=== PATIENT | female | born 2000 | race Caucasian/White ===

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

== ENCOUNTER 2021-04-23 20:07 | Emergency (ER) | payer OTHER ==
--- NOTE | 2021-04-23 20:32 | ERPHSYRPT ---
- History of Present Illness Time Seen by Provider: 04/23/21 20:31 Source: patient Exam Limitations: no limitations Physician History: This is a 21-year-old obese white female patient of Dr. Armijo who presents with shortness of breath, headache and body aches that started today. She has no known exposure to anyone with viral illnesses. Patient does have a history o f hypertension and anxiety. When she takes a deep breath she is also feels some chest tightness but not pain. She does smoke cigarettes daily. She has had no vomiting or diarrhea. She does have some nausea. She seems very anxious upon arrival. She denies any stressors in her life. She denies illicit drug use. Upon arrival to emergency department her room air oxygenation is 99 to 100% and her heart rate is 82 Timing/Duration: today Activities at Onset: none Severity of Dyspnea-Max: mild Severity of Dyspnea-Current: mild Possible Cause: no prior episodes Modifying Factors: Improves With: activity, coughing Associated Symptoms: anxiety, cough Allergies/Adverse Reactions: No Known Drug Allergies Allergy (Verified 04/23/21 20:20) Home Medications: No Reportable Medications [No Reported Medications] 04/23/21 [History] Hx Tetanus, Diphtheria Vaccination/Date Given: Yes Hx Influenza Vaccination/Date Given: No Hx Pneumococcal Vaccination/Date Given: No Travel Risk - International Travel Have you traveled outside of the country in past 3 weeks: No - Coronavirus Screening Are you exhibiting any of the following symptoms?: Yes Symptoms: Cough: New Onset, Shortness of Breath, Headaches/Body Aches/Fatigue Close contact with a COVID-19 positive Pt in past 14-21 Days: No - Review of Systems Constitutional: No Symptoms Eyes: No Symptoms Ears, Nose, & Throat: No Symptoms Respiratory: Cough, Dyspnea Cardiac: No Symptoms Abdominal/Gastrointestinal: Nausea, No Abdominal Pain, No Vomiting, No Diarrhea Genitourinary Symptoms: No Symptoms Musculoskeletal: No Symptoms Skin: No Symptoms Neurological: No Symptoms Psychological: No Symptoms Endocrine: No Symptoms Hematologic/Lymphatic: No Symptoms Immunological/Allergic: No Symptoms All Other Systems: Reviewed and Negative - Past Medical History Pertinent Past Medical History: No Neurological History: No Pertinent History ENT History: No Pertinent History Cardiac History: No Pertinent History Respiratory History: No Pertinent History Endocrine Medical History: No Pertinent History Musculoskeletal History: No Pertinent History GI Medical History: No Pertinent History History: No Pertinent History Psycho-Social History: No Pertinent History Female Reproductive Disorders: No Pertinent History - Past Surgical History Past Surgical History: No Neuro Surgical History: No Pertinent History Cardiac: No Pertinent History Respiratory: No Pertinent History Gastrointestinal: No Pertinent History Genitourinary: No Pertinent History Musculoskeletal: No Pertinent History - Social History Smoking Status: Current every day smoker How long have you smoked: 1 year Exposure to second hand smoke: Yes Drug Use: none Patient Lives Alone: No - Nursing Vital Signs Nursing Vital Signs: Initial Vital Signs Temperature 98.6 F 04/23/21 20:21 Pulse Rate 98 H 04/23/21 20:21 Respiratory Rate 18 04/23/21 20:21 Blood Pressure 152/94 04/23/21 20:21 O2 Sat by Pulse Oximetry 100 04/23/21 20:21 Pain Scale Pain Intensity 0 - Physical Exam General Appearance: mild distress, alert, anxiety, obese Eye Exam: PERRL/EOMI, eyes nml inspection Ears, Nose, Throat Exam: hearing grossly normal, normal ENT inspection, normal pharynx Neck Exam: normal inspection, non-tender, supple, full range of motion Respiratory Exam: normal breath sounds, lungs clear, airway intact, No chest tenderness, No respiratory distress Cardiovascular/Chest Exam: normal heart sounds, regular rate/rhythm, normal peripheral pulses Abdominal/Gastrointestinal Exam: soft, normal bowel sounds, No tenderness Rectal Exam: not done Extremity Exam: non-tender, normal range of motion, normal inspection Neurologic Exam: alert, oriented x 3, cooperative, electromedical equipment technician II-XII nml as tested, normal mood/affect, nml cerebellar function, nml station & gait, sensation nml Skin Exam: normal color, warm, dry Lymphatic Exam: No adenopathy SpO2 Interpretation: normal O2 Delivery: Room Air - Course Nursing assessment & vital signs reviewed: Yes EKG Interpreted by Me: RATE (82), Sinus Rhythm, NORMAL AXIS, NORMAL INTERVALS, NORMAL QRS, NORMAL ST-T, Other (No acute ischemic changes on today's EKG) Ordered Tests: Active Orders 24 hr Category Date Time Status Title Assistant STAT Care 04/23/21 20:38 Active EKG-ER Only STAT Care 04/23/21 20:35 Active IV Insertion STAT Care 04/23/21 20:35 Active Pulse Oximetry (ED) STAT Care 04/23/21 20:35 Active CHEST 1 VIEW (PORTABLE) Stat Exams 04/23/21 20:37 Taken BLOOD CULTURE Stat Lab 04/23/21 21:10 Received CBC W DIFF Stat Lab 04/23/21 21:00 Completed CMP Stat Lab 04/23/21 21:00 Completed D-DIMER QUANTITATIVE Stat Lab 04/23/21 21:00 Completed HCG,QUALITATIVE URINE Stat Lab 04/23/21 21:10 Completed INFLUENZA A+B ISAAC Stat Lab 04/23/21 21:10 Completed Lactic Acid Stat Lab 04/23/21 21:35 Completed [place] Screen Stat Lab 04/23/21 21:10 Completed UA W/RFX UR CULTURE Stat Lab 04/23/21 21:10 Completed Medication Summary Discontinued Medications Generic Name Dose Route Start Last Admin Trade Name Freq PRN Reason Stop Dose Admin Sodium Chloride 1,000 mls @ 999 mls/hr 04/23/21 20:35 04/23/21 21:46 Sodium Chloride 0.9% 1000 Ml IV 04/23/21 21:35 Infused .Q1H1M STA Infusion Sodium Chloride Confirm 04/23/21 20:43 Sodium Chloride 0.9% 1000 Ml Administered 04/23/21 20:44 Dose 1,000 mls @ ud .ROUTE .STK-MED ONE Ondansetron HCl 4 mg 04/23/21 20:52 04/23/21 20:55 Ondansetron Hcl 4 Mg/2 Ml Vial IV 04/23/21 20:53 4 mg STAT ONE Administration Ondansetron HCl Confirm 04/23/21 20:53 Ondansetron Hcl 4 Mg/2 Ml Vial Administered 04/23/21 20:54 Dose 4 mg .ROUTE .STK-MED ONE Lab/Rad Data: Laboratory Result Diagrams 04/23/21 21:00 04/23/21 21:00 Laboratory Results 04/23/21 04/23/21 04/23/21 Range/Units 21:35 21:10 21:10 WBC (4.0-10.5) K/mm3 RBC (4.1-5.4) M/mm3 Hgb (12.0-16.0) gm/dl Hct (35-47) % MCV (78-100) fl MCH (26-32) pg MCHC (32-36) g/dl RDW (11.5-14.0) % Plt Count (150-450) K/mm3 MPV (7.5-11.0) fl Gran % (36.0-66.0) % Eos # (Auto) (0-0.5) Absolute Lymphs (auto) (1.0-4.6) Absolute Monos (auto) (0.0-1.3) Lymphocytes % (24.0-44.0) % Monocytes % (0.0-12.0) % Eosinophils % (0.00-5.0) % Basophils % (0.0-0.4) % Absolute Granulocytes (1.4-6.9) Basophils # (0-0.4) D-Dimer (215-500) ng/mL Sodium (137-145) mmol/L Potassium (3.5-5.1) mmol/L Chloride (98-107) mmol/L Carbon Dioxide (22-30) mmol/L Anion Gap (5-15) MEQ/L BUN (7-17) mg/dL Creatinine (0.52-1.04) mg/dL Estimated GFR ML/MIN Glucose (74-106) mg/dL Lactic Acid 2.1 H (0.4-2.0) Calcium (8.4-10.2) mg/dL Total Bilirubin (0.2-1.3) mg/dL AST (14-36) U/L ALT (0-35) U/L Alkaline Phosphatase (38-126) U/L Serum Total Protein (6.3-8.2) g/dL Albumin (3.5-5.0) g/dL Urine Color (YELLOW) Urine Appearance (CLEAR) Urine pH (5-6) Ur Specific [place] (1.005-1.025) Urine Protein (Negative) Urine Ketones (NEGATIVE) Urine Blood (0-5) [place]/ul Urine Nitrite (NEGATIVE) Urine Bilirubin (NEGATIVE) Urine Urobilinogen (0-1) mg/dL Ur Leukocyte Esterase (NEGATIVE) Urine WBC (Auto) (0-5) /HPF Urine RBC (Auto) (0-2) /HPF U Epithel Cells (Auto) (FEW) /HPF Urine Bacteria (Auto) (NEGATIVE) /HPF Urine Mucus (Auto) (NEGATIVE) /HPF Urine Culture Reflexed (NO) Urine Glucose (NEGATIVE) mg/dL Urine HCG, Qual NEGATIVE (Negative) Monoscreen NEGATIVE (Negative) Influenza Type A Ag (NEGATIVE) Influenza Type B Ag (NEGATIVE) 04/23/21 04/23/21 04/23/21 Range/Units 21:10 21:10 21:00 WBC (4.0-10.5) K/mm3 RBC (4.1-5.4) M/mm3 Hgb (12.0-16.0) gm/dl Hct (35-47) % MCV (78-100) fl MCH (26-32) pg MCHC (32-36) g/dl RDW (11.5-14.0) % Plt Count (150-450) K/mm3 MPV (7.5-11.0) fl Gran % (36.0-66.0) % Eos # (Auto) (0-0.5) Absolute Lymphs (auto) (1.0-4.6) Absolute Monos (auto) (0.0-1.3) Lymphocytes % (24.0-44.0) % Monocytes % (0.0-12.0) % Eosinophils % (0.00-5.0) % Basophils % (0.0-0.4) % Absolute Granulocytes (1.4-6.9) Basophils # (0-0.4) D-Dimer 401 (215-500) ng/mL Sodium (137-145) mmol/L Potassium (3.5-5.1) mmol/L Chloride (98-107) mmol/L Carbon Dioxide (22-30) mmol/L Anion Gap (5-15) MEQ/L BUN (7-17) mg/dL Creatinine (0.52-1.04) mg/dL Estimated GFR ML/MIN Glucose (74-106) mg/dL Lactic Acid (0.4-2.0) Calcium (8.4-10.2) mg/dL Total Bilirubin (0.2-1.3) mg/dL AST (14-36) U/L ALT (0-35) U/L Alkaline Phosphatase (38-126) U/L Serum Total Protein (6.3-8.2) g/dL Albumin (3.5-5.0) g/dL Urine Color YELLOW (YELLOW) Urine Appearance SLIGHTLY CLOUDY (CLEAR) Urine pH 6.0 (5-6) Ur Specific [place] 1.024 (1.005-1.025) Urine Protein NEGATIVE (Negative) Urine Ketones NEGATIVE (NEGATIVE) Urine Blood MODERATE (0-5) [place]/ul Urine Nitrite NEGATIVE (NEGATIVE) Urine Bilirubin NEGATIVE (NEGATIVE) Urine Urobilinogen NEGATIVE (0-1) mg/dL Ur Leukocyte Esterase NEGATIVE (NEGATIVE) Urine WBC (Auto) NONE (0-5) /HPF Urine RBC (Auto) NONE (0-2) /HPF U Epithel Cells (Auto) RARE (FEW) /HPF Urine Bacteria (Auto) NONE (NEGATIVE) /HPF Urine Mucus (Auto) SLIGHT (NEGATIVE) /HPF Urine Culture Reflexed NO (NO) Urine Glucose NEGATIVE (NEGATIVE) mg/dL Urine HCG, Qual (Negative) Monoscreen (Negative) Influenza Type A Ag NEGATIVE (NEGATIVE) Influenza Type B Ag NEGATIVE (NEGATIVE) 04/23/21 04/23/21 Range/Units 21:00 21:00 WBC 8.8 (4.0-10.5) K/mm3 RBC 3.68 L (4.1-5.4) M/mm3 Hgb 11.0 L (12.0-16.0) gm/dl Hct 35.3 (35-47) % MCV 95.9 (78-100) fl MCH 29.9 (26-32) pg MCHC 31.2 L (32-36) g/dl RDW 14.6 H (11.5-14.0) % Plt Count 169 (150-450) K/mm3 MPV 11.9 H (7.5-11.0) fl Gran % 68.1 H (36.0-66.0) % Eos # (Auto) 0.15 (0-0.5) Absolute Lymphs (auto) 2.14 (1.0-4.6) Absolute Monos (auto) 0.48 (0.0-1.3) Lymphocytes % 24.5 (24.0-44.0) % Monocytes % 5.5 (0.0-12.0) % Eosinophils % 1.7 (0.00-5.0) % Basophils % 0.2 (0.0-0.4) % Absolute Granulocytes 5.96 (1.4-6.9) Basophils # 0.02 (0-0.4) D-Dimer (215-500) ng/mL Sodium 136 L (137-145) mmol/L Potassium 4.8 (3.5-5.1) mmol/L Chloride 103 (98-107) mmol/L Carbon Dioxide 22 (22-30) mmol/L Anion Gap 16.1 H (5-15) MEQ/L BUN 10 (7-17) mg/dL Creatinine 0.66 (0.52-1.04) mg/dL Estimated GFR > 60.0 ML/MIN Glucose 93 (74-106) mg/dL Lactic Acid (0.4-2.0) Calcium 9.0 (8.4-10.2) mg/dL Total Bilirubin 0.60 (0.2-1.3) mg/dL AST 48 H (14-36) U/L ALT 34 (0-35) U/L Alkaline Phosphatase 87 (38-126) U/L Serum Total Protein 7.7 (6.3-8.2) g/dL Albumin 4.3 (3.5-5.0) g/dL Urine Color (YELLOW) Urine Appearance (CLEAR) Urine pH (5-6) Ur Specific [place] (1.005-1.025) Urine Protein (Negative) Urine Ketones (NEGATIVE) Urine Blood (0-5) [place]/ul Urine Nitrite (NEGATIVE) Urine Bilirubin (NEGATIVE) Urine Urobilinogen (0-1) mg/dL Ur Leukocyte Esterase (NEGATIVE) Urine WBC (Auto) (0-5) /HPF Urine RBC (Auto) (0-2) /HPF U Epithel Cells (Auto) (FEW) /HPF Urine Bacteria (Auto) (NEGATIVE) /HPF Urine Mucus (Auto) (NEGATIVE) /HPF Urine Culture Reflexed (NO) Urine Glucose (NEGATIVE) mg/dL Urine HCG, Qual (Negative) Monoscreen (Negative) Influenza Type A Ag (NEGATIVE) Influenza Type B Ag (NEGATIVE) - Progress Progress: improved Air Movement: good Progress Note: 04/23/21 23:13 Chest x-ray shows no acute cardiopulmonary process Blood Culture(s) Obtained: Yes Antibiotics given: No Counseled pt/family regarding: lab results, diagnosis, need for follow-up, rad results - Departure Departure Disposition: Home Clinical Impression: Anxiety, Shortness of breath Condition: Stable Critical Care Time: No Referrals: ALBAN ARMIJO [Primary Care Provider] - Follow up/PCP as directed Additional Instructions: Drink plenty fluids. Take all your medication as prescribed. Quarantine yourself until the results of your COVID-19 test come back.
[2021-04-23] MEDS ORDERED: Sodium Chloride 0.9% 1000 ML 1,000 ML IV STA (20:35)
[2021-04-23] MEDS ORDERED: Sodium Chloride 0.9% 1000 ML 1,000 ML ONE (20:43)
[2021-04-23] MEDS ORDERED: Zofran 4 MG/2 ML VIAL IV ONE (20:52)
[2021-04-23] MEDS ORDERED: Zofran 4 MG/2 ML VIAL ONE (20:53)
[2021-04-23 21:27] LABS: Absolute Neutrophil Ct (ANC) 5.96 (1.4-6.9); Basophil (Absolute #) 0.02 (0-0.4); Eosinophil % 1.7 % (0.00-5.0); Eosinophil (Absolute #) 0.15 (0-0.5); Hematocrit 35.3 % (35-47); Lymphocyte (Absolute #) 2.14 (1.0-4.6); Lymphocytes % 24.5 % (24.0-44.0); Mean Cell Volume 95.9 fl (78-100); Mean Corpuscular Hemoglobin 29.9 pg (26-32); Mean Corpuscular Hgb Concent. 31.2 g/dl (32-36); Mean Platelet Volume 11.9 fl (7.5-11.0); Monocyte (Absolute #) 0.48 (0.0-1.3); Monocytes % 5.5 % (0.0-12.0); Neutrophil % 68.1 % (36.0-66.0); Platelet Count 169 K/mm3 (150-450); Red Blood Count 3.68 M/mm3 (4.1-5.4); Red Cell Distribution Width 14.6 % (11.5-14.0); White Blood Count 8.8 K/mm3 (4.0-10.5)
[2021-04-23 21:42] LABS: ALBUMIN 4.3 g/dL (3.5-5.0); ALKALINE PHOSPHATASE 87 U/L (38-126); ANION GAP 16.1 MEQ/L (5-15); BLOOD UREA NITROGEN 10 mg/dL (7-17); CHLORIDE 103 mmol/L (98-107); Carbon Dioxide 22 mmol/L (22-30); Creatinine 1 0.66 mg/dL (0.52-1.04); EST GLOMERULAR FILTRATION RATE > 60.0 ML/MIN; Glucose 93 mg/dL (74-106); Potassium 4.8 mmol/L (3.5-5.1); SGOT/AST 48 U/L (14-36); SGPT/ALT 34 U/L (0-35); SODIUM 136 mmol/L (137-145); Total Protein 7.7 g/dL (6.3-8.2)
[2021-04-23 22:02] LABS: INFLUENZA A NEGATIVE (NEGATIVE); INFLUENZA B NEGATIVE (NEGATIVE)
[2021-04-23 22:03] VITALS: O2SAT 99
[2021-04-23 22:53] LABS: Appearance SLIGHTLY CLOUDY (CLEAR); Bilirubin NEGATIVE (NEGATIVE); Blood MODERATE Ery/ul (0-5); Epithelial Cells RARE /HPF (FEW); Glucose NEGATIVE (NEGATIVE); Ketones NEGATIVE (NEGATIVE); Leukocyte Esterase NEGATIVE (NEGATIVE); Mucus SLIGHT /HPF (NEGATIVE); Nitrite NEGATIVE (NEGATIVE); Protein,Urine Dip NEGATIVE (Negative); Specific Gravity 1.024 (1.005-1.025); Urobilinogen NEGATIVE mg/dL (0-1)
[2021-04-23 23:22] VITALS: BP 132/72; PULSE 75
[2021-04-24 00:23] LABS: Slide Review 1 YES
--- NOTE | 2021-04-24 08:46 | XRAY ---
Indication: Short of breath. Comparison: None Portable chest demonstrates normal heart, lungs, and bony thorax.
== END 2021-04-23 23:32 | disposition home or self-care (01) ==
LOC: ED 20:07
DX: R06.02 Shortness of breath (principal); F41.9 Anxiety disorder, unspecified; R51.9 Headache, unspecified; M79.10 Myalgia, unspecified site; I10 Essential (primary) hypertension
CPT/HCPCS: 36000; 36415; 71045; 80053; 81001; 83605; 84703; 85025; 85379; 86308; 87040; 87400; 93005; 93041; 94760; 96374; 99284; U0003; J2405

== ENCOUNTER 2021-06-10 13:11 | Emergency (ER) | payer OTHER ==
[2021-06-10 13:26] VITALS: BP 167/79; PULSE 112; O2SAT 98
--- NOTE | 2021-06-10 13:36 | ERPHSYRPT ---
- History of Present Illness Time Seen by Provider: 06/10/21 13:30 Source: patient Exam Limitations: no limitations Patient Subjective Stated Complaint: Pt states " I was washing dishes and a plate broke and cut my thumb" Triage Nursing Assessment: Pt L thumb has a 1.5 cm laceration. bleeding controlled. tetanus shot utd Physician History: Patient suffered a 1.5 cm laceration superficial and linear to the left thumb w hile washing dishes. She does not feel that there is any loss of motion or sensation. No other injury. Tetanus is up-to-date. Timing/Duration: today Quality: painful Severity: mild Location: hands (Base of the left thumb palmar surface) Allergies/Adverse Reactions: No Known Drug Allergies Allergy (Verified 04/23/21 20:20) Home Medications: No Reportable Medications [No Reported Medications] 04/23/21 [History] Hx Tetanus, Diphtheria Vaccination/Date Given: Yes Hx Influenza Vaccination/Date Given: No Hx Pneumococcal Vaccination/Date Given: No Immunizations Up to Date: Yes Travel Risk - International Travel Have you traveled outside of the country in past 3 weeks: No - Coronavirus Screening Are you exhibiting any of the following symptoms?: No Close contact with a COVID-19 positive Pt in past 14-21 Days: No - Vaccine Status Have you recieved a Covid-19 vaccination: No - Review of Systems Constitutional: No Fever, No Chills Eyes: No Symptoms Ears, Nose, & Throat: No Symptoms Respiratory: No Cough, No Dyspnea Cardiac: No Chest Pain, No Edema, No Syncope Abdominal/Gastrointestinal: No Abdominal Pain, No Nausea, No Vomiting, No Diarrhea Genitourinary Symptoms: No Dysuria Musculoskeletal: No Back Pain, No Neck Pain Skin: No Rash Neurological: No Dizziness, No Focal Weakness, No Sensory Changes Psychological: No Symptoms Endocrine: No Symptoms All Other Systems: Reviewed and Negative - Past Medical History Pertinent Past Medical History: No Neurological History: No Pertinent History ENT History: No Pertinent History Cardiac History: No Pertinent History Respiratory History: No Pertinent History Endocrine Medical History: No Pertinent History Musculoskeletal History: No Pertinent History GI Medical History: No Pertinent History History: No Pertinent History Psycho-Social History: No Pertinent History Female Reproductive Disorders: No Pertinent History - Past Surgical History Past Surgical History: No Neuro Surgical History: No Pertinent History Cardiac: No Pertinent History Respiratory: No Pertinent History Gastrointestinal: No Pertinent History Genitourinary: No Pertinent History Musculoskeletal: No Pertinent History - Social History Smoking Status: Current every day smoker How long have you smoked: 1 year Exposure to second hand smoke: Yes Drug Use: none Patient Lives Alone: No - Female History Hx Now: No - Nursing Vital Signs Nursing Vital Signs: Initial Vital Signs Temperature 98.8 F 06/10/21 13:25 Pulse Rate 112 H 06/10/21 13:25 Respiratory Rate 18 06/10/21 13:25 Blood Pressure 167/79 06/10/21 13:25 O2 Sat by Pulse Oximetry 98 06/10/21 13:25 Pain Scale Pain Intensity 3 - Physical Exam General Appearance: no apparent distress Eye Exam: PERRL/EOMI, eyes nml inspection Ears, Nose, Throat Exam: normal ENT inspection Neck Exam: normal inspection, non-tender, supple Respiratory Exam: airway intact, No respiratory distress Back Exam: normal inspection, normal range of motion Extremity Exam: normal inspection, normal range of motion, lacerations, No parasthesia (1.5 cm laceration base of the left thumb palmar surface.) Neurologic Exam: oriented x 3, cooperative Lymphatic Exam: other (Laceration left thumb) SpO2 Interpretation: normal SpO2: 98 O2 Delivery: Room Air Procedures - Laceration/Wound Repair Left Finger Wound Location: Left, hand (Left thumb 1.5 cm) Wound Length (cm): 1.5 Wound's Depth, Shape: superficial, linear Wound Explored: clean Irrigated: Yes Hibiclens Prep: Yes Anesthesia: 1% Lidocaine Volume Anesthetic (ccs): 2 Wound Debrided: minimal Wound Repaired With: sutures Suture Size/Type: 5-0, ethilon Number of Sutures: 3 Layer Closure?: No Sterile Dressing Applied?: Yes Splint Applied?: No Sling Applied?: No - Course Nursing assessment & vital signs reviewed: Yes - Progress Progress: improved - Departure Departure Disposition: Home Clinical Impression: Laceration of left thumb Condition: Stable Critical Care Time: No Referrals: ALBAN HERNANDEZ [Primary Care Provider] - Follow up/PCP as directed Instructions: Laceration Repair With Stitches (DC)
== END 2021-06-10 13:46 | disposition home or self-care (01) ==
LOC: ED 13:11
DX: S61.012A Laceration without foreign body of left thumb without damage to nail, initial encounter (principal); W26.8XXA Contact with other sharp object(s), not elsewhere classified, initial encounter; Y93.G1 Activity, food preparation and clean up; Y92.000 Kitchen of unspecified non-institutional (private) residence as the place of occurrence of the external cause; Z72.0 Tobacco use
CPT/HCPCS: 12001; 99283

== ENCOUNTER 2023-02-17 15:34 | Emergency (ER) | payer OTHER ==
[2023-02-17] MEDS ORDERED: Sodium Chloride 0.9% 1000 ML 1,000 ML IV STA ×2 (15:55→16:36)
[2023-02-17] MEDS ORDERED: Zofran 4 MG/2 ML VIAL IV ONE (15:55)
[2023-02-17 15:56] VITALS: BP 126/85; PULSE 89; RESP 22; TEMP 98.1; O2SAT 98
[2023-02-17 16:17] LABS: BASOPHIL % 0.5 % (0.0-0.4); Basophil (Absolute #) 0.03 x10^3/uL (0-0.4); Eosinophil % 0.5 % (0.00-5.0); Eosinophil (Absolute #) 0.03 x10^3/uL (0-0.5); Hematocrit 36.8 % (35-47); Hemoglobin 11.4 g/dL (12.0-16.0); IMMATURE GRAN # 0.02 x10^3u/L (0.00-0.03); IMMATURE GRAN % 0.3 % (0.00-0.4); Lymphocyte (Absolute #) 1.89 x10^3/uL (1.0-4.6); Mean Cell Volume 86.4 fL (78-100); Mean Corpuscular Hemoglobin 26.8 pg (26-32); Mean Platelet Volume 9.8 fL (7.5-11.0); Monocyte (Absolute #) 0.44 x10^3/uL (0.0-1.3); Monocytes % 6.8 % (0.0-12.0); Neutrophil % 62.9 % (36.0-66.0); Platelet Count 304 x10^3/uL (150-450); Red Blood Count 4.26 x10^6/uL (4.1-5.4); White Blood Count 6.5 x10^3/uL (4.0-10.5)
[2023-02-17] MEDS ORDERED: Sodium Chloride 0.9% 1000 ML 0 ML ONE (16:20)
[2023-02-17] MEDS ORDERED: Zofran 4 MG/2 ML VIAL ONE (16:20)
[2023-02-17 16:28] LABS: Amphetamine,Urine NEGATIVE (NEGATIVE); Barbiturate,Urine NEGATIVE (NEGATIVE); Benzodiazepine,Urine NEGATIVE (NEGATIVE); Cocaine,Urine NEGATIVE (NEGATIVE); Methadone,Urine NEGATIVE (NEGATIVE); Opiate,Urine NEGATIVE (NEGATIVE); PCP,Urine NEGATIVE (NEGATIVE); THC,Urine NEGATIVE (NEGATIVE)
[2023-02-17 16:32] LABS: ALBUMIN 4.3 g/dL (3.5-5.0); ANION GAP 20.4 MEQ/L (5-15); BILIRUBIN,TOTAL 0.5 mg/dL (0.2-1.3); Creatinine 1 0.66 mg/dL (0.52-1.04); EST GLOMERULAR FILTRATION RATE 126.3 ML/MIN; Potassium 4.2 mmol/L (3.5-5.1); Total Protein 7.8 g/dL (6.3-8.2)
[2023-02-17 16:33] LABS: Appearance Cloudy (Clear); Bacteria Few /HPF (None Seen); Bilirubin Negative (Negative); Blood Negative (Negative); Epithelial Cells Many /HPF (None Seen); Glucose, Urine Negative (Negative); Hyaline Casts NONE SEEN /LPF (0-2); Ketones Trace (Negative); Leukocyte Esterase Negative (Negative); Nitrite Negative (Negative); Ph 5.5 (4.6-8.0); Protein,Urine Dip Trace (Negative); RBC 0-2 /HPF (0-5); Specific Gravity 1.025 (1.005-1.030); Urobilinogen 0.2 mg/dL (0.2); WBC 0-2 /HPF (0-5)
[2023-02-17 16:34] LABS: ADD URINE CULTURE? NO (NO)
[2023-02-17 16:37] LABS: HCG SERUM TEST NEGATIVE (NEGATIVE)
[2023-02-17 16:47] LABS: INFLUENZA A NEGATIVE (NEGATIVE); INFLUENZA B NEGATIVE (NEGATIVE); RESPIRATORY SYNCTIAL VIRUS NEGATIVE (NEGATIVE); SARS-CoV-2 Xpert Express NEGATIVE (NEGATIVE)
[2023-02-17] MEDS ORDERED: Reglan 10 MG/2 ML IV ONE (16:53)
[2023-02-17] MEDS ORDERED: Reglan 10 MG/2 ML ONE (17:00)
--- NOTE | 2023-02-17 17:38 | XRAY ---
CLINICAL HISTORY:n,v COMPARISON:CT dated 11/12/2013 reviewed. TECHNIQUE:CT scan of the abdomen and pelvis was performed without intravenous contrast. Coronal and sagittal reconstructive images were also obtained. FINDINGS: Basal thoracic cuts: clear lung bases. Liver and biliary tree: Enlarged liver (liver span 23 cm) with diffuse hypoattenuation. No liver lesion is seen. GB is distended. No stones or masses inside. Spleen: Unremarkable. Adrenal glands: Unremarkable. Pancreas: Unremarkable. Kidneys and ureters: Unremarkable. No renal stone, cysts or hydronephrosis is detected. Stomach and bowel: Caecal diverticula are seen. There is mild bowel wall thickening with hypoattenuation at the transverse and ascending colon, which could be secondary to hypodistention versus inflammatory or infectious in origin. Retroperitoneum: Unremarkable. Lymph nodes: No evidence of lymphadenopathy. Skeletal system: No suspicious bony lesion detected. Bladder: No definite focal lesion detected. The uterus and both adnexa are unremarkable. IMPRESSION: Enlarged liver (liver span 23 cm) with diffuse hypoattenuation. Findings suggesting hepatic steatosis. Caecal diverticula are seen with no evident diverticulitis. Mild bowel wall thickening with hypoattenuation at the transverse and ascending colon, which could be secondary to hypodistention versus inflammatory or infectious in origin. Clinical correlation and follow-up are suggested. Electronically Signed by: Rakesh Yang MD. (02/17/2023 16:37:15 STUDENT ADVISOR)
--- NOTE | 2023-02-17 18:04 | ERPHSYRPT ---
- History of Present Illness Time Seen by Provider: 02/17/23 16:00 Historian: patient, family Exam Limitations: no limitations Patient Subjective Stated Complaint: pt co n/v started today, no cough, no fever. Triage Nursing Assessment: pt alert, resp easy, walked in, skin w.d.p, chest clear, abd soft, urine dark yellow Physician History: Patient is a 22-year-old white female who presents with a chief complaint of vomiting and some shortness of work. She was at work when this started she became lightheaded she vomited initially there was some blood but later she was not vomiting any significant blood. She does say she feels lightheaded and felt like she was going to pass out. This started approximately 3 hours prior to arrival.Patient has minimal complaint of pain. Timing/Duration: today Allergies/Adverse Reactions: No Known Drug Allergies Allergy (Verified 02/17/23 15:56) Hx Tetanus, Diphtheria Vaccination/Date Given: Yes Hx Influenza Vaccination/Date Given: No Hx Pneumococcal Vaccination/Date Given: No Immunizations Up to Date: Yes Travel Risk - International Travel Have you traveled outside of the country in past 3 weeks: No - Coronavirus Screening Are you exhibiting any of the following symptoms?: Yes Symptoms: Vomiting/Diarrhea Close contact with a COVID-19 positive Pt in past 14-21 Days: No - Vaccine Status Have you recieved a Covid-19 vaccination: No - Review of Systems Constitutional: No Fever, No Chills Eyes: No Symptoms Ears, Nose, & Throat: No Symptoms Respiratory: No Cough, No Dyspnea Cardiac: No Chest Pain, No Edema, No Syncope Abdominal/Gastrointestinal: Abdominal Pain, Hematemesis, No Nausea, No Vomiting, No Diarrhea Genitourinary Symptoms: No Dysuria Musculoskeletal: No Back Pain, No Neck Pain Skin: No Rash Neurological: No Dizziness, No Focal Weakness, No Sensory Changes Psychological: No Symptoms Endocrine: No Symptoms All Other Systems: Reviewed and Negative - Past Medical History Pertinent Past Medical History: No Neurological History: No Pertinent History ENT History: No Pertinent History Cardiac History: No Pertinent History Respiratory History: No Pertinent History Endocrine Medical History: No Pertinent History Musculoskeletal History: No Pertinent History GI Medical History: No Pertinent History History: No Pertinent History Psycho-Social History: No Pertinent History Female Reproductive Disorders: No Pertinent History - Past Surgical History Past Surgical History: No Neuro Surgical History: No Pertinent History Cardiac: No Pertinent History Respiratory: No Pertinent History Gastrointestinal: No Pertinent History Genitourinary: No Pertinent History Musculoskeletal: No Pertinent History - Social History Smoking Status: Never smoker How long have you smoked: 1 year Exposure to second hand smoke: No Drug Use: none Patient Lives Alone: No - Female History Hx Last Menstrual Period: last week Hx Now: No - Nursing Vital Signs Nursing Vital Signs: Initial Vital Signs Temperature 98.1 F 02/17/23 15:55 Pulse Rate 89 02/17/23 15:55 Respiratory Rate 22 02/17/23 15:55 Blood Pressure 126/85 02/17/23 15:55 O2 Sat by Pulse Oximetry 98 02/17/23 15:55 Pain Scale Pain Intensity 0 - Physical Exam General Appearance: mild distress, alert Eye Exam: PERRL/EOMI, eyes nml inspection Ears, Nose, Throat Exam: normal ENT inspection, pharynx normal, moist mucous membranes Neck Exam: normal inspection, non-tender, supple, full range of motion Respiratory Exam: normal breath sounds, lungs clear, No respiratory distress Cardiovascular Exam: regular rate/rhythm, normal heart sounds Gastrointestinal/Abdomen Exam: soft, No tenderness, No mass Pelvic Exam: not done Rectal Exam: deferred Back Exam: normal inspection, normal range of motion, No CVA tenderness, No vertebral tenderness Extremity Exam: normal inspection, normal range of motion, pelvis stable Neurologic Exam: alert, oriented x 3, cooperative, normal mood/affect, nml cerebellar function, sensation nml, No motor deficits Skin Exam: normal color, warm, dry SpO2: 98 - Course Nursing assessment & vital signs reviewed: Yes - CT Exams Abdomen/Pelvis CT Interpretation: Tele-radiologist Report Ordered Tests: Active Orders 24 hr Category Date Time Status IV Insertion STAT Care 02/17/23 15:55 Active ABDOMEN AND PELVIS W/0 CONTRAS [CT] Stat Exams 02/17/23 16:49 Completed CBC W DIFF Stat Lab 02/17/23 16:10 Completed CMP Stat Lab 02/17/23 16:10 Completed HCG QUALITATIVE, SERUM Stat Lab 02/17/23 16:10 Completed LIPASE Stat Lab 02/17/23 16:10 Completed Lactic Acid Stat Lab 02/17/23 16:20 Completed UA W/RFX UR CULTURE Stat Lab 02/17/23 15:30 Completed Urine Triage Profile Stat Lab 02/17/23 15:30 Completed Medication Summary Discontinued Medications Generic Name Dose Route Start Last Admin Trade Name Rylee PRN Reason Stop Dose Admin Sodium Chloride 1,000 mls @ 999 mls/hr 02/17/23 15:55 02/17/23 16:23 Sodium Chloride 0.9% 1000 Ml IV 02/17/23 16:55 999 mls/hr .Q1H1M STA Administration Sodium Chloride Confirm 02/17/23 16:20 Sodium Chloride 0.9% 1000 Ml Administered 02/17/23 16:21 Dose 1,000 mls @ ud .ROUTE .STK-MED ONE Sodium Chloride 1,000 mls @ 999 mls/hr 02/17/23 16:36 Sodium Chloride 0.9% 1000 Ml IV 02/17/23 17:36 .Q1H1M STA Metoclopramide HCl 10 mg 02/17/23 16:53 02/17/23 17:02 Metoclopramide Hcl 10 Mg/2 Ml Vial IV 02/17/23 16:54 10 mg STAT ONE Administration Metoclopramide HCl Confirm 02/17/23 17:00 Metoclopramide Hcl 10 Mg/2 Ml Vial Administered 02/17/23 17:01 Dose 10 mg .ROUTE .STK-MED ONE Ondansetron HCl 4 mg 02/17/23 15:55 02/17/23 16:24 Ondansetron Hcl 4 Mg/2 Ml Vial IV 02/17/23 15:56 4 mg STAT ONE Administration Ondansetron HCl Confirm 02/17/23 16:20 Ondansetron Hcl 4 Mg/2 Ml Vial Administered 02/17/23 16:21 Dose 4 mg .ROUTE .STK-MED ONE Lab/Rad Data: Laboratory Result Diagrams 02/17/23 16:10 02/17/23 16:10 Laboratory Results 02/17/23 02/17/23 02/17/23 Range/Units 16:20 16:10 16:10 WBC (4.0-10.5) x10^3/uL RBC (4.1-5.4) x10^6/uL Hgb (12.0-16.0) g/dL Hct (35-47) % MCV (78-100) fL MCH (26-32) pg MCHC (32-36) g/dL RDW (11.5-14.0) % Plt Count (150-450) x10^3/uL MPV (7.5-11.0) fL Gran % (36.0-66.0) % Immature Gran % (Auto) (0.00-0.4) % Nucleat RBC Rel Count (0.00-0.1) % Eos # (Auto) (0-0.5) x10^3/uL Immature Gran # (Auto) (0.00-0.03) x10^3u/L Absolute Lymphs (auto) (1.0-4.6) x10^3/uL Absolute Monos (auto) (0.0-1.3) x10^3/uL Absolute Nucleated RBC (0.00-0.01) x10^3u/L Lymphocytes % (24.0-44.0) % Monocytes % (0.0-12.0) % Eosinophils % (0.00-5.0) % Basophils % (0.0-0.4) % Absolute Granulocytes (1.4-6.9) x10^3/uL Basophils # (0-0.4) x10^3/uL Sodium 140 (137-145) mmol/L Potassium 4.2 (3.5-5.1) mmol/L Chloride 101 (98-107) mmol/L Carbon Dioxide 23 (22-30) mmol/L Anion Gap 20.4 H (5-15) MEQ/L BUN 7 (7-17) mg/dL Creatinine 0.66 (0.52-1.04) mg/dL Estimated GFR 126.3 ML/MIN Glucose 97 (74-106) mg/dL Lactic Acid 3.3 H (0.4-2.0) Calcium 9.0 (8.4-10.2) mg/dL Total Bilirubin 0.50 (0.2-1.3) mg/dL AST 146 H (14-36) U/L ALT 124 H (0-35) U/L Alkaline Phosphatase 117 (38-126) U/L Serum Total Protein 7.8 (6.3-8.2) g/dL Albumin 4.3 (3.5-5.0) g/dL Lipase 46 (23-300) U/L Serum HCG, Qual NEGATIVE (NEGATIVE) Urine Color (Yellow) Urine Appearance (Clear) Urine pH (4.6-8.0) Ur Specific [place] (1.005-1.030) Urine Protein (Negative) Urine Glucose (UA) (Negative) mg/dL Urine Ketones (Negative) Urine Blood (Negative) Urine Nitrite (Negative) Urine Bilirubin (Negative) Urine Urobilinogen (0.2) mg/dL Ur Leukocyte Esterase (Negative) U Hyaline Cast (Auto) (0-2) /LPF Urine Microscopic RBC (0-5) /HPF Urine Microscopic WBC (0-5) /HPF Ur Epithelial Cells (None Seen) /HPF Urine Bacteria (None Seen) /HPF Urine Yeast (Budding) (None Seen) /HPF Urine Culture Reflexed (NO) Urine Opiates Level (NEGATIVE) Ur Methadone (NEGATIVE) Urine Barbiturates (NEGATIVE) Ur Phencyclidine (PCP) (NEGATIVE) Urine Amphetamine (NEGATIVE) U Benzodiazepine Level (NEGATIVE) Urine Cocaine (NEGATIVE) Urine Marijuana (THC) (NEGATIVE) Influenza Type A Ag (NEGATIVE) Influenza Type B Ag (NEGATIVE) RSV (PCR) (NEGATIVE) SARS-CoV-2 (PCR) (NEGATIVE) 02/17/23 02/17/23 02/17/23 Range/Units 16:10 16:04 15:30 WBC 6.5 (4.0-10.5) x10^3/uL RBC 4.26 (4.1-5.4) x10^6/uL Hgb 11.4 L (12.0-16.0) g/dL Hct 36.8 (35-47) % MCV 86.4 (78-100) fL MCH 26.8 (26-32) pg MCHC 31.0 L (32-36) g/dL RDW 18.0 H (11.5-14.0) % Plt Count 304 (150-450) x10^3/uL MPV 9.8 (7.5-11.0) fL Gran % 62.9 (36.0-66.0) % Immature Gran % (Auto) 0.3 (0.00-0.4) % Nucleat RBC Rel Count 0.0 (0.00-0.1) % Eos # (Auto) 0.03 (0-0.5) x10^3/uL Immature Gran # (Auto) 0.02 (0.00-0.03) x10^3u/L Absolute Lymphs (auto) 1.89 (1.0-4.6) x10^3/uL Absolute Monos (auto) 0.44 (0.0-1.3) x10^3/uL Absolute Nucleated RBC 0.00 (0.00-0.01) x10^3u/L Lymphocytes % 29.0 (24.0-44.0) % Monocytes % 6.8 (0.0-12.0) % Eosinophils % 0.5 (0.00-5.0) % Basophils % 0.5 (0.0-0.4) % Absolute Granulocytes 4.10 (1.4-6.9) x10^3/uL Basophils # 0.03 (0-0.4) x10^3/uL Sodium (137-145) mmol/L Potassium (3.5-5.1) mmol/L Chloride (98-107) mmol/L Carbon Dioxide (22-30) mmol/L Anion Gap (5-15) MEQ/L BUN (7-17) mg/dL Creatinine (0.52-1.04) mg/dL Estimated GFR ML/MIN Glucose (74-106) mg/dL Lactic Acid (0.4-2.0) Calcium (8.4-10.2) mg/dL Total Bilirubin (0.2-1.3) mg/dL AST (14-36) U/L ALT (0-35) U/L Alkaline Phosphatase (38-126) U/L Serum Total Protein (6.3-8.2) g/dL Albumin (3.5-5.0) g/dL Lipase (23-300) U/L Serum HCG, Qual (NEGATIVE) Urine Color (Yellow) Urine Appearance (Clear) Urine pH (4.6-8.0) Ur Specific [place] (1.005-1.030) Urine Protein (Negative) Urine Glucose (UA) (Negative) mg/dL Urine Ketones (Negative) Urine Blood (Negative) Urine Nitrite (Negative) Urine Bilirubin (Negative) Urine Urobilinogen (0.2) mg/dL Ur Leukocyte Esterase (Negative) U Hyaline Cast (Auto) (0-2) /LPF Urine Microscopic RBC (0-5) /HPF Urine Microscopic WBC (0-5) /HPF Ur Epithelial Cells (None Seen) /HPF Urine Bacteria (None Seen) /HPF Urine Yeast (Budding) (None Seen) /HPF Urine Culture Reflexed (NO) Urine Opiates Level NEGATIVE (NEGATIVE) Ur Methadone NEGATIVE (NEGATIVE) Urine Barbiturates NEGATIVE (NEGATIVE) Ur Phencyclidine (PCP) NEGATIVE (NEGATIVE) Urine Amphetamine NEGATIVE (NEGATIVE) U Benzodiazepine Level NEGATIVE (NEGATIVE) Urine Cocaine NEGATIVE (NEGATIVE) Urine Marijuana (THC) NEGATIVE (NEGATIVE) Influenza Type A Ag NEGATIVE (NEGATIVE) Influenza Type B Ag NEGATIVE (NEGATIVE) RSV (PCR) NEGATIVE (NEGATIVE) SARS-CoV-2 (PCR) NEGATIVE (NEGATIVE) 02/17/23 Range/Units 15:30 WBC (4.0-10.5) x10^3/uL RBC (4.1-5.4) x10^6/uL Hgb (12.0-16.0) g/dL Hct (35-47) % MCV (78-100) fL MCH (26-32) pg MCHC (32-36) g/dL RDW (11.5-14.0) % Plt Count (150-450) x10^3/uL MPV (7.5-11.0) fL Gran % (36.0-66.0) % Immature Gran % (Auto) (0.00-0.4) % Nucleat RBC Rel Count (0.00-0.1) % Eos # (Auto) (0-0.5) x10^3/uL Immature Gran # (Auto) (0.00-0.03) x10^3u/L Absolute Lymphs (auto) (1.0-4.6) x10^3/uL Absolute Monos (auto) (0.0-1.3) x10^3/uL Absolute Nucleated RBC (0.00-0.01) x10^3u/L Lymphocytes % (24.0-44.0) % Monocytes % (0.0-12.0) % Eosinophils % (0.00-5.0) % Basophils % (0.0-0.4) % Absolute Granulocytes (1.4-6.9) x10^3/uL Basophils # (0-0.4) x10^3/uL Sodium (137-145) mmol/L Potassium (3.5-5.1) mmol/L Chloride (98-107) mmol/L Carbon Dioxide (22-30) mmol/L Anion Gap (5-15) MEQ/L BUN (7-17) mg/dL Creatinine (0.52-1.04) mg/dL Estimated GFR ML/MIN Glucose (74-106) mg/dL Lactic Acid (0.4-2.0) Calcium (8.4-10.2) mg/dL Total Bilirubin (0.2-1.3) mg/dL AST (14-36) U/L ALT (0-35) U/L Alkaline Phosphatase (38-126) U/L Serum Total Protein (6.3-8.2) g/dL Albumin (3.5-5.0) g/dL Lipase (23-300) U/L Serum HCG, Qual (NEGATIVE) Urine Color Dark Yellow A (Yellow) Urine Appearance Cloudy A (Clear) Urine pH 5.5 (4.6-8.0) Ur Specific [place] 1.025 (1.005-1.030) Urine Protein Trace A (Negative) Urine Glucose (UA) Negative (Negative) mg/dL Urine Ketones Trace A (Negative) Urine Blood Negative (Negative) Urine Nitrite Negative (Negative) Urine Bilirubin Negative (Negative) Urine Urobilinogen 0.2 (0.2) mg/dL Ur Leukocyte Esterase Negative (Negative) U Hyaline Cast (Auto) NONE SEEN (0-2) /LPF Urine Microscopic RBC 0-2 (0-5) /HPF Urine Microscopic WBC 0-2 (0-5) /HPF Ur Epithelial Cells Many A (None Seen) /HPF Urine Bacteria Few A (None Seen) /HPF Urine Yeast (Budding) (None Seen) /HPF Urine Culture Reflexed NO (NO) Urine Opiates Level (NEGATIVE) Ur Methadone (NEGATIVE) Urine Barbiturates (NEGATIVE) Ur Phencyclidine (PCP) (NEGATIVE) Urine Amphetamine (NEGATIVE) U Benzodiazepine Level (NEGATIVE) Urine Cocaine (NEGATIVE) Urine Marijuana (THC) (NEGATIVE) Influenza Type A Ag (NEGATIVE) Influenza Type B Ag (NEGATIVE) RSV (PCR) (NEGATIVE) SARS-CoV-2 (PCR) (NEGATIVE) - Progress Progress: improved Medical Desision Making - Diagnostic Testing Diagnostic test were ordered, analyzed, and reviewed by me: Yes Radiological Interpretation: Reviewed by me, Teleradiologist Report - Risk of complications Low Risk: Low risk of morbidity from additional dx testing or treatment - Departure Departure Disposition: Home Clinical Impression: Colitis Condition: Stable Critical Care Time: No Referrals: ALBAN HERNANDEZ [Primary Care Provider] - Follow up/PCP as directed Instructions: Ulcerative Colitis (DC) Prescriptions: Metronidazole 500 mg [Flagyl 500 MG] 500 mg PO TID #21 tablet Metoclopramide HCl 10 mg [Reglan 10 MG] 10 mg PO Q6H 10 Days #40 tablet
[2023-02-17] MEDS ORDERED: Sodium Chloride 0.9% 1000 ML 1,000 ML ONE (18:13)
== END 2023-02-17 18:19 | disposition home or self-care (01) ==
LOC: ED 15:34
DX: K52.9 Noninfective gastroenteritis and colitis, unspecified (principal); R11.2 Nausea with vomiting, unspecified; R42 Dizziness and giddiness; Z28.310 Unvaccinated for COVID-19
CPT/HCPCS: 0241U; 36000; 36415; 74176; 80053; 80307; 81001; 83605; 83690; 84703; 85025; 96360; 96374; 96375; 99284; J2405

== ENCOUNTER 2023-10-01 03:57 | Emergency (ER) | payer SELFPAY ==
[2023-10-01 04:23] VITALS: TEMP 97.7
--- NOTE | 2023-10-01 04:52 | ERPHSYRPT ---
- History of Present Illness Source: patient, other (Mother) Exam Limitations: other (Poor historian) Patient Subjective Stated Complaint: C/O right foot pain X 2 weeks. Denies injury. Triage Nursing Assessment: Patient ambulated back to ER without difficulties. She is alert and oriented. Right foot/ankle is slightly swollen. Normal skin tone. ROM WNL. Pedal pulse present. Physician History: 23-year-old female who complains of left ankle edema and mild pain x 2 weeks. Pain is very minimal and mildly increased with weightbearing. Patient denies any injury. Denies any chest pain or shortness of breath. Method of Injury: unknown (Denies injury) Occurred: other (Swelling x 2 weeks) Severity of Pain-Max: mild Severity of Pain-Current: mild Lower Extremities Pain: ankle: right Modifying Factors: Improves With: movement Associated Symptoms: No unable to bear weight Allergies/Adverse Reactions: No Known Drug Allergies Allergy (Verified 10/01/23 04:09) Home Medications: No Reportable Medications [No Reported Medications] 10/01/23 [History] Hx Tetanus, Diphtheria Vaccination/Date Given: Yes Hx Influenza Vaccination/Date Given: No Hx Pneumococcal Vaccination/Date Given: No Travel Risk - International Travel Have you traveled outside of the country in past 3 weeks: No - Emerging Infectious Disease Are you exhibiting symptoms associated with any current EIDs: No - Review of Systems Constitutional: No Symptoms Eyes: No Symptoms Ears, Nose, & Throat: No Symptoms Respiratory: No Symptoms Cardiac: No Symptoms Abdominal/Gastrointestinal: No Symptoms Genitourinary Symptoms: No Symptoms Skin: No Symptoms Neurological: No Symptoms Psychological: No Symptoms Endocrine: No Symptoms Hematologic/Lymphatic: No Symptoms Immunological/Allergic: No Symptoms - Past Medical History Pertinent Past Medical History: No Neurological History: No Pertinent History ENT History: No Pertinent History Cardiac History: No Pertinent History Respiratory History: No Pertinent History Endocrine Medical History: No Pertinent History Musculoskeletal History: No Pertinent History GI Medical History: No Pertinent History History: No Pertinent History Psycho-Social History: No Pertinent History Female Reproductive Disorders: No Pertinent History - Past Surgical History Past Surgical History: No Neuro Surgical History: No Pertinent History Cardiac: No Pertinent History Respiratory: No Pertinent History Gastrointestinal: No Pertinent History Genitourinary: No Pertinent History Musculoskeletal: No Pertinent History - Female History Hx Last Menstrual Period: Just ended Hx Now: No - Social History Smoking Status: Never smoker How long have you smoked: 1 year Exposure to second hand smoke: No Drug Use: none Patient Lives Alone: No - Social Determinants of Health Will the patient participate in the screening: Declined to provide - Nursing Vital Signs Nursing Vital Signs: Initial Vital Signs Temperature 97.7 F 10/01/23 03:57 Pulse Rate 120 H 10/01/23 03:57 Respiratory Rate 18 10/01/23 03:57 Blood Pressure 143/93 10/01/23 03:57 O2 Sat by Pulse Oximetry 96 10/01/23 03:57 Pain Scale Pain Intensity 1 Tachycardic, hypertensive - Physical Exam General Appearance: no apparent distress Eyes, Ears, Nose, Throat Exam: normal ENT inspection, TMs normal, pharynx normal Neck Exam: normal inspection, non-tender, No Brudzinski Cardiovascular/Respiratory Exam: normal breath sounds, tachycardia (Mildly tachycardic) Gastrointestinal/Abdominal Exam: non-tender, soft Back Exam: normal inspection, normal range of motion Hips Exam: bilateral: non-tender, normal inspection, normal range of motion, no evidence of injury Legs Exam: bilateral leg: non-tender, normal inspection, normal range of motion, no evidence of injury Knees Exam: bilateral knee: non-tender, normal inspection, normal range of motion, no evidence of injury Ankle Exam: bilateral ankle: swelling (Mild ankle edema bilaterally) Foot Exam: bilateral foot: swelling (Mild foot edema bilaterally, good pedal pulses bilaterally, good distal capillary turn and sensation bilaterally) Neuro/Tendon Exam: normal sensation, normal motor functions, responds to pain, no evidence tendon injury Mental Status Exam: alert, oriented x 3 Skin Exam: normal color, warm, dry SpO2 Interpretation: normal SpO2: 96 O2 Delivery: Room Air - Course Nursing assessment & vital signs reviewed: Yes - Radiology Exams Ankle X-ray Interpretation: Interpreted by me (Right ankle negative for acute fracture per ER reading) Ordered Tests: Active Orders 24 hr Category Date Time Status Robel Bandage Application -[facility] STAT Care 10/01/23 04:57 Active ANKLE (3 VIEWS) Stat Exams 10/01/23 04:19 Taken - Progress Progress: improved Progress Note: 10/01/23 05:01 Nursing note and vital signs reviewed. No food or housing insecurity noted. Right ankle x-ray interpreted per ER physician and results thoroughly explained to patient Patient has a mild edema of her right Ankle which does not appear to be increased compared to her left ankle. Right calf is nontender to palpation and there is no erythema of the right foot or ankle. She has a good right pedal pulse, good distal capillary return, and good distal sensation. It is possible patient has an occult sprain, so Robel wrap right ankle per nursing/neurovascular intact post application. Discharged in stable condition with instructions to follow-up with her PCP in 1 to 2 days for any pain and to return to the ER for increasing pain, increasing swelling, any redness, or temperature greater 100.5. No evidence of cellulitis on her physical exam. Counseled pt/family regarding: diagnosis, need for follow-up, rad results Medical Desision Making - Independent Historian Additional History obtained from: Mother - Diagnostic Testing Radiological Interpretation: Interpreted by me - Risk of complications Low Risk: Low risk of morbidity from additional dx testing or treatment - Departure Departure Disposition: Home Clinical Impression: Occult right ankle sprain Condition: Stable Critical Care Time: No Referrals: ALBAN HERNANDEZ [Primary Care Provider] - Follow up/PCP as directed Instructions: Ankle Sprain ED Additional Instructions: Follow-up with your family MD in 1 to 2 days Robel wrap for 2 to 3 days Motrin/Tylenol for pain Turn to ER as needed
[2023-10-01 04:53] VITALS: O2SAT 96
[2023-10-01 05:09] VITALS: BP 106/72; PULSE 100; RESP 18
--- NOTE | 2023-10-01 09:05 | XRAY ---
Indication: Edema. Comparison: None 3 view right ankle demonstrates tiny distal tibia bone island and tiny plantar heel spur. Tip lateral malleolus demonstrates tiny curvilinear well-circumscribed heterotopic ossification degenerative versus sequela old injury. No other bony, articular, or soft tissue abnormalities.
== END 2023-10-01 05:09 | disposition home or self-care (01) ==
LOC: ED 03:57
DX: S93.401A Sprain of unspecified ligament of right ankle, initial encounter (principal)
CPT/HCPCS: 73610; 99282